=== PATIENT | male | born 1985 | race Caucasian/White ===

== ENCOUNTER 2024-11-05 11:57 | Emergency (ER) | payer OTHER ==
--- NOTE | 2024-11-05 12:01 | ERPHSYRPT ---
- History of Present Illness Time Seen by Provider: 11/05/24 12:01 Source: patient, family Exam Limitations: no limitations Physician History: This is a 39-year-old white male patient arrives by private vehicle and has no primary care provider with the complaint of right lower posterior molar dental caries and dental pain. It came on 2 days ago and has worsened since that time. There has been no swelling and no fever. He took Tylenol and ibuprofen at approximately 6 AM today. He is allergic to erythromycin Timing/Duration: abrupt onset, days (2) Severity: mild ENT Location: dental (To moderate) Prearrival Treatment: over the counter meds Modifying Factors: Improves With: other (Doing on that side hurts) Associated Symptoms: tooth pain (Right posterior, lower molars), No drooling, No facial pain/swelling, No swollen glands, No sore throat, No difficulty swallowing Allergies/Adverse Reactions: erythromycin base Adverse Reaction (Verified 11/05/24 12:18) Home Medications: Omeprazole Magnesium [Prilosec Otc] 20 mg PO DAILY 11/05/24 [History] Travel Risk - International Travel Have you traveled outside of the country in past 3 weeks: No - Emerging Infectious Disease Are you exhibiting symptoms associated with any current EIDs: No - Review of Systems Constitutional: No Symptoms Eyes: No Symptoms Ears, Nose, & Throat: Other (Dental pain right posterior lower molars) Respiratory: No Symptoms Cardiac: No Symptoms Abdominal/Gastrointestinal: No Symptoms Genitourinary Symptoms: No Symptoms Musculoskeletal: No Symptoms Skin: No Symptoms Neurological: No Symptoms Psychological: No Symptoms Endocrine: No Symptoms Hematologic/Lymphatic: No Symptoms Immunological/Allergic: No Symptoms All Other Systems: Reviewed and Negative - Past Medical History Pertinent Past Medical History: No - Nursing Vital Signs Nursing Vital Signs: Initial Vital Signs Pulse Rate 72 11/05/24 11:57 Respiratory Rate 18 11/05/24 11:57 O2 Sat by Pulse Oximetry 99 11/05/24 11:57 Pain Scale Pain Intensity 10 - Physical Exam General Appearance: no apparent distress, alert Eye Exam: bilateral eye: normal inspection, PERRL, EOMI Ear Exam: bilateral ear: auricle normal Nasal Exam: normal inspection Throat Exam: pharynx normal, dental tenderness (Right, posterior, lower molars), moist mucus membranes, No mandibular swelling, No maxillary swelling, No voice changes Neck Exam: normal inspection, non-tender, supple, full range of motion, trachea midline Cardiovascular/Respiratory Exam: chest non-tender, no respiratory distress Abdominal Exam: non-tender Neurologic Exam: alert, oriented x 3, cooperative, helmet hat brim cutter II-XII nml as tested, normal mood/affect, nml cerebellar function, nml station & gait, sensation nml Skin Exam: normal color, warm, dry SpO2 Interpretation: normal O2 Delivery: Room Air - Course Nursing assessment & vital signs reviewed: Yes Ordered Tests: Medication Summary Discontinued Medications Generic Name Dose Route Start Last Admin Trade Name Tyshawn PRN Reason Stop Dose Admin Amoxicillin 500 mg 11/05/24 12:49 Amoxicillin Trihydrate 500 Mg Capsule PO 11/05/24 12:50 STAT ONE Ibuprofen 600 mg 11/05/24 12:49 Ibuprofen 600 Mg Tablet PO 11/05/24 12:50 STAT ONE Oxycodone/Acetaminophen 1 tab 11/05/24 12:49 Oxycodone Hcl/Apap 5 Mg/325 Mg Tablet PO 11/05/24 12:50 STAT STA - Progress Progress: unchanged Progress Note: 11/05/24 12:58 My medical decision making and the assignment of low complexity to this patient's medical issue today is based on review of the patient's past medical history, review the patient's medication list, review the patient drug allergy list, history present illness and physical findings on examination. The workup in this patient does not require any laboratory or radiographic studies. Differential diagnosis includes but is not limited to gingivitis, dental pain secondary to dental caries, dental abscess Counseled pt/family regarding: diagnosis, need for follow-up Medical Desision Making - Independent Historian Additional History obtained from: Spouse - Diagnostic Testing Diagnostic test were ordered, analyzed, and reviewed by me: No - Departure Departure Disposition: Home Clinical Impression: Pain due to dental caries Condition: Stable Critical Care Time: No Additional Instructions: Call a dentist on 11/07/24, to arrange an appointment for definitive care. Use ibuprofen, tylenol and over the counter topical dental anesthetics Prescriptions: Amoxicillin 500 mg Cap [Amoxil 500 mg] 500 mg PO TID #30 cap
[2024-11-05 12:18] VITALS: TEMP 97.3
[2024-11-05] MEDS ORDERED: PERCOCET TABLET 5/325MG ONE (12:55)
[2024-11-05] MEDS ORDERED: MOTRIN 600 MG ONE (12:55)
[2024-11-05] MEDS ORDERED: AMOXIL 500 MG ONE (12:55)
[2024-11-05] MEDS: AMOXIL 500 MG PO ONE (12:58)
[2024-11-05] MEDS: MOTRIN 600 MG PO ONE (12:58)
[2024-11-05] MEDS: PERCOCET TABLET 5/325MG PO STA (13:00)
[2024-11-05 13:06] VITALS: BP 152/96; PULSE 82; RESP 18; O2SAT 98
== END 2024-11-05 13:10 | disposition home or self-care (01) ==
LOC: ED 11:57
DX: K02.9 Dental caries, unspecified (principal); K08.89 Other specified disorders of teeth and supporting structures; Z79.899 Other long term (current) drug therapy
CPT/HCPCS: 99283; A9270-GY